=== PATIENT | female | born 1930 | race Caucasian/White ===

== ENCOUNTER 2017-12-19 10:32 | Inpatient (IN) | payer MEDICARE, OTHER ==
[~2017-12-19] VITALS: Ht 154.9 cm; Wt 61.2 kg
[~2017-12-19 10:32] MED LIST: COLACE100 MG PO; CYPROHEPTAD2 MG/5 ML PO; DIALYVITE WITH1 EACH PO; DIPHENHIST25 M2 PO; GABAPENTIN 100100 MG PO; HYDROCODONE-AP1 EAC6 PO; IRON325 PO; LIORESAL 10 MG10 MG PO; LOPRESSOR25 PO; MELATONIN3 MG PO; MUCINEX TA600 MG/TA2 PO; ROBITUSSIN DM PO; TYLENOL325 MG PO; VITAMIN D3400 UNIT PO; VITAMINC500 PO
[2017-12-19 10:34] VITALS: BP 211/84
[2017-12-19 11:02] LABS: URINE BILIRUBIN NEGATIVE (Negative); URINE BLOOD TRACE (Negative); URINE CLARITY CLEAR; URINE COLOR YELLOW; URINE GLUCOSE-RANDOM NEGATIVE (Negative); URINE KETONES NEGATIVE (Negative); URINE LEUKOCYTES-REFLEX 3+ (Negative); URINE NITRITE-REFLEX POSITIVE (Negative); URINE PROTEIN NEGATIVE (Negative); URINE SPECIFIC GRAVITY 1.015 (1.005-1.030); URINE UROBILINOGEN 0.2 E.U./dl (0.2-1.0)
[2017-12-19 11:12] LABS: BACTERIA-REFLEX >30 Many /HPF (None Seen); SQUAMOUS 0-3 Few /LPF (0-3); URINE RBC 3-10 Few /HPF (0-2); URINE WBC-REFLEX >25 Many /HPF (0-5)
[2017-12-19 11:13] LABS: CASTS None Seen /LPF (None Seen); CRYSTALS None Seen /LPF (None Seen); MUCUS 0-3 Light strn/LPF (None Seen)
[2017-12-19 11:15] LABS: ABSOLUTE EOSINOPHILS 0.1 thou/uL (0.0-0.7); ABSOLUTE LYMPHOCYTES 1.8 thou/uL (0.8-5.3); ABSOLUTE MONOCYTES 0.8 thou/uL (0.0-1.2); ABSOLUTE NEUTROPHILS 4.7 thou/uL (1.6-8.1); BASOPHILS 0.4 %; HEMATOCRIT 39.4 % (37.0-47.0); HEMOGLOBIN 13.2 gm/dL (12.0-15.0); LYMPHOCYTES 24.1 %; MCH 29.3 pg (26.0-34.0); MCHC 33.6 g/dL (28.0-37.0); MCV 87.2 fL (80.0-100.0); MONOCYTES 10.2 %; MPV 7.1 fl. (7.2-11.1); NUCLEATED RBCS 0 /100WBC; PLATELET COUNT* 291 thou/uL (150-400); POLYS 63.3 %; RBC 4.51 mil/uL (4.20-5.00); RDW-CV 14.6 % (10.5-14.5); WBC 7.4 thou/uL (4.0-11.0)
[2017-12-19 11:25] LABS: ANION GAP 4 mmol/L (7-16); BUN 23 mg/dL (7-18); CALCIUM 10.1 mg/dL (8.5-10.1); CHLORIDE 102 mmol/L (98-107); CO2 28 mmol/L (21-32); CREATININE 0.8 mg/dL (0.6-1.3); GLUCOSE 100 mg/dL (70-99); POTASSIUM 3.5 mmol/L (3.5-5.1); SODIUM 134 mmol/L (136-145)
[2017-12-19 11:31] LABS: ALBUMIN 3.3 g/dL (3.4-5.0); ALKALINE PHOSPHATASE 74 U/L (46-116); LIPASE 101 U/L (73-393); SGOT 19 U/L (15-37); SGPT 23 U/L (30-65); TOTAL BILIRUBIN 0.6 mg/dL (<0.1-1.0); TROPONIN-I LEVEL <0.06 ng/mL (<0.06)
[2017-12-19 12:52] VITALS: BP 179/82
--- NOTE | 2017-12-19 13:08 | EKG ---
[place] [address] ELECTROCARDIOGRAM REPORT Name: SOPHIA AYOUB Room: [address] ADM IN M.R.#: [id number] Admission: 12/19/17 Attend Phys: Orlando Marcano MD Discharge: Date of : 34 Report #: [id number] THIS REPORT FOR: //name// [facility] ED Test Date: 2017-12-19 Test Time: 11:03:25 Pat Name: SOPHIA AYOUB Department: Room: [facility] Gender: F [employer] Operator: Simran DUQUE : 1930 Requested By: Heidi Sparrow Order Number: [id number] MD: Eyad Rhodes Measurements Intervals [place] Rate: 72 P: 13 TX: 154 QRS: -55 QRSD: 102 T: 18 QT: 391 QTc: 428 Interpretive Statements Sinus rhythm Incomplete RBBB and LAFB Abnormal R-wave progression, early transition No previous ECG available for comparison Electronically Signed On 12-19-2017 13:08:20 CDT by Eyad Rhodes [email or web address] <ELECTRONICALLY SIGNED> By: Eyad Rhodes MD, [facility] 12/19/17 1308 1103 1103 Eyad Rhodes MD, [facility] /EPI
[2017-12-19 13:37] VITALS: BP 187/70
[2017-12-19 16:47] VITALS: BP 160/79
[2017-12-19 21:40] VITALS: BP 160/71
[2017-12-20 00:54] VITALS: BP 111/64
[2017-12-20 04:56] LABS: HEMATOCRIT 37.7 % (37.0-47.0); HEMOGLOBIN 12.5 gm/dL (12.0-15.0); MCH 29.1 pg (26.0-34.0); MCHC 33.3 g/dL (28.0-37.0); MCV 87.5 fL (80.0-100.0); MPV 7.3 fl. (7.2-11.1); RBC 4.31 mil/uL (4.20-5.00); RDW-CV 14.5 % (10.5-14.5)
[2017-12-20 05:17] LABS: CALCIUM 9.2 mg/dL (8.5-10.1); CREATININE 0.7 mg/dL (0.6-1.3); MAGNESIUM 1.3 mg/dL (1.8-2.4); POTASSIUM 3.2 mmol/L (3.5-5.1)
[2017-12-20 08:58] VITALS: BP 156/56
[2017-12-20 13:32] VITALS: BP 198/82
[2017-12-20 21:55] VITALS: BP 167/79
[2017-12-21 05:26] LABS: HEMOGLOBIN 12.4 gm/dL (12.0-15.0); MCH 29.1 pg (26.0-34.0); MCHC 33.6 g/dL (28.0-37.0); MCV 86.6 fL (80.0-100.0); RBC 4.27 mil/uL (4.20-5.00); RDW-CV 14.7 % (10.5-14.5); WBC 7.1 thou/uL (4.0-11.0)
[2017-12-21 06:07] LABS: CALCIUM 9.4 mg/dL (8.5-10.1); CREATININE 0.7 mg/dL (0.6-1.3); MAGNESIUM 1.4 mg/dL (1.8-2.4); POTASSIUM 3.1 mmol/L (3.5-5.1)
[2017-12-21 08:51] VITALS: BP 168/80
[2017-12-21 15:33] VITALS: BP 149/81
[2017-12-21 20:00] VITALS: BP 209/77
[2017-12-22 05:17] LABS: HEMATOCRIT 39.6 % (37.0-47.0); MCH 28.6 pg (26.0-34.0); MCHC 32.9 g/dL (28.0-37.0); MCV 86.8 fL (80.0-100.0); MPV 7.2 fl. (7.2-11.1); RBC 4.56 mil/uL (4.20-5.00); RDW-CV 14.4 % (10.5-14.5); WBC 8.6 thou/uL (4.0-11.0)
[2017-12-22 06:14] LABS: ALBUMIN 3.1 g/dL (3.4-5.0); CALCIUM 9.7 mg/dL (8.5-10.1); CREATININE 0.7 mg/dL (0.6-1.3); MAGNESIUM 1.5 mg/dL (1.8-2.4); POTASSIUM 3.2 mmol/L (3.5-5.1); TOTAL BILIRUBIN 0.8 mg/dL (<0.1-1.0); TOTAL PROTEIN 6.1 g/dL (6.4-8.2)
[2017-12-22 09:54] VITALS: BP 188/78
[2017-12-22 14:15] VITALS: BP 188/78
[2017-12-22] MEDS ORDERED: MORPHINE SUBLING (14:40)
[2017-12-22] MEDS ORDERED: TETRACYCLINE H250 MG PO (14:41)
== END 2017-12-22 16:18 | disposition hospice, home (50) | DRG 689 ==
LOC: M.ERS 10:32 → M.TBA-ER 12:19 → M.ORTHSURG 12:19
PROVIDERS: Internal Medicine; Physician Assistant; ADMIT Internal Medicine
DX: N39.0 Urinary tract infection, site not specified (principal); G92 Toxic encephalopathy; I16.1 Hypertensive emergency; E44.0 Moderate protein-calorie malnutrition; I10 Essential (primary) hypertension; G62.9 Polyneuropathy, unspecified; E86.0 Dehydration; F03.90 Unspecified dementia, unspecified severity, without behavioral disturbance, psychotic disturbance, mood disturbance, and anxiety; E86.9 Volume depletion, unspecified; M54.30 Sciatica, unspecified side; Z66 Do not resuscitate; Z28.21 Immunization not carried out because of patient refusal; Z88.1 Allergy status to other antibiotic agents; Z87.820 Personal history of traumatic brain injury; Z88.2 Allergy status to sulfonamides; Z88.8 Allergy status to other drugs, medicaments and biological substances; Z68.25 Body mass index [BMI] 25.0-25.9, adult; Z79.899 Other long term (current) drug therapy; D63.8 Anemia in other chronic diseases classified elsewhere; R53.81 Other malaise